=== PATIENT | female | born 1985 | race Two or more races ===

== ENCOUNTER → 2016-09-10 | Emergency (ER) | payer OTHER ==
[2016-09-10 14:13] VITALS: TEMP 98.4; BMI 26.6
--- NOTE | 2016-09-10 15:35 | PDOC ---
History of Present Illness - General History Source: Patient - History of Present Illness Presenting Symptoms: Chest Pain, Short of Breath, Other Timing/Duration: reports: intermittent <More Lawrence - Last Filed: 09/10/16 17:59> <Chano Kaur - Last Filed: 09/10/16 21:53> - General Chief Complaint: Chest Pain Stated Complaint: SENT BY PCP,CHEST PAIN Time Seen by Provider: 09/10/16 15:02 Past History - Past Medical History Anemia: Yes HTN: Yes Hypercholesterolemia: Yes Thyroid Disease: Yes - Immunization History Immunization Up to Date: Yes - Psycho/Social/Smoking Cessation Hx Suicidal Ideation: No Smoking History: Never smoked Hx Alcohol Use: No Drug/Substance Use Hx: No Substance Use Type: None <More Lawrence - Last Filed: 09/10/16 17:59> <Chano Kaur - Last Filed: 09/10/16 21:53> - Past Medical History Allergies/Adverse Reactions: Allergies Allergy/AdvReac Type Severity Reaction Status Date / Time No Known Allergies Allergy Verified 09/10/16 14:13 Home Medications: Ambulatory Orders Ibuprofen [Motrin -] 400 mg PO QID 09/10/16 Levothyroxine [Synthroid -] 125 mcg PO DAILY 09/10/16 Lisinopril/Hydrochlorothiazide [Lisinopril-Hctz 20-12.5 mg Tab] 1 each PO DAILY 09/10/16 Methocarbamol [Robaxin -] 500 mg PO TID PRN #21 tablet 09/10/16 Oxycodone HCl/Acetaminophen [Oxycodone-Acetaminophen 5-325] 1 - 2 tab PO Q4H PRN 09/10/16 Pantoprazole Sodium [Protonix] 40 mg PO DAILY #21 tablet. 09/10/16 Review of Systems - Review of Systems Constitutional: No: Chills, Fever Respiratory: Yes: Shortness of Breath. No: Cough Cardiac (ROS): Yes: Chest Pain, Palpitations. No: Lightheadedness <More Lawrence Last Filed: 09/10/16 17:59> *Physical Exam - Physical Exam General Appearance: Yes: Appropriately Dressed. No: Apparent Distress HEENT: positive: Normal Voice Neck: positive: Supple Respiratory/Chest: positive: Lungs Clear, Normal Breath Sounds. negative: Respiratory Distress Cardiovascular: positive: Regular Rate, S1, S2 Gastrointestinal/Abdominal: positive: Soft. negative: Tender Extremity: positive: Normal Inspection. negative: Pedal Edema Integumentary: positive: Dry, Warm Neurologic: positive: Fully Oriented, Alert, Normal Mood/Affect <Brittney LawrenceValentina - Last Filed: 09/10/16 17:59> - Vital Signs Last Vital Signs Temp Pulse Resp BP Pulse Ox 98.4 F 86 22 142/102 99 09/10/16 19:39 09/10/16 19:39 09/10/16 19:39 09/10/16 19:39 09/10/16 19:39 Heart Score/ECG Review <HowardMore - Last Filed: 09/10/16 17:59> <Chano Kaur - Last Filed: 09/10/16 21:53> - ECG Intrepretation Comment:: 09/10/16 15:42 Twelve-lead EKG was performed and reviewed by me. There is normal sinus rhythm with a normal rate. The axis is normal. The intervals are normal. There are no ST or T wave abnormalities. Impression: Normal twelve-lead EKG (HowardMore) ED Treatment Course - LABORATORY CBC & Chemistry Diagram: 09/10/16 15:00 <HowardBrittneyNaldo - Last Filed: 09/10/16 17:59> - LABORATORY CBC & Chemistry Diagram: 09/10/16 15:00 09/10/16 18:50 <Chano Kaur - Last Filed: 09/10/16 21:53> - ADDITIONAL ORDERS Additional order review: Laboratory Results 09/10/16 09/10/16 09/10/16 18:50 18:27 15:07 D-Dimer Sodium 141 Cancelled Potassium 4.0 Cancelled Chloride 102 Cancelled Carbon Dioxide 28 Cancelled Anion Gap 11 Cancelled BUN 9 D Cancelled Creatinine 0.5 L Cancelled Creat Clearance w eGFR > 60 Cancelled Random Glucose 84 Cancelled Calcium 9.5 Cancelled Total Bilirubin 0.3 D Cancelled AST 26 D Cancelled ALT 49 Cancelled Alkaline Phosphatase 69 D Cancelled Creatine Kinase Troponin I Total Protein 7.9 Cancelled Albumin 4.0 D Cancelled Urine Color Straw Urine Appearance Clear Urine pH 6.0 Ur Specific [place] 1.009 Urine Protein Negative Urine Glucose (UA) Negative Urine Ketones Negative Urine Blood 1+ H Urine Nitrite Negative Urine Bilirubin Negative Urine Urobilinogen Negative Ur Leukocyte Esterase 1+ H Urine RBC 1 Urine WBC 4 Ur Epithelial Cells Rare Urine Mucus Rare 09/10/16 09/10/16 15:00 15:00 D-Dimer 874 H Sodium Potassium Chloride Carbon Dioxide Anion Gap BUN Creatinine Creat Clearance w eGFR Random Glucose Calcium Total Bilirubin AST ALT Alkaline Phosphatase Creatine Kinase 62 Troponin I < 0.02 Total Protein Albumin Urine Color Urine Appearance Urine pH Ur Specific [place] Urine Protein Urine Glucose (UA) Urine Ketones Urine Blood Urine Nitrite Urine Bilirubin Urine Urobilinogen Ur Leukocyte Esterase Urine RBC Urine WBC Ur Epithelial Cells Urine Mucus 09/10/16 15:00 RBC 5.18 MCV 74.5 L MCHC 31.7 L RDW 18.3 H D MPV 8.2 Neutrophils % 63.3 Lymphocytes % 24.6 Monocytes % 5.4 Eosinophils % 5.9 H D Basophils % 0.8 Medical Decision Making <More Lawrence - Last Filed: 09/10/16 17:59> <Chano Kaur - Last Filed: 09/10/16 21:53> - Medical Decision Making 09/10/16 15:34 31 yo F, s/p hysterctomy 2 weeks ago for fibroids/menorrhagia, HTN, p/w CP. Pt reports sharp, non-radiating L sided CP that started last night, comes and goes and 7/10. ?sob and palpitations this am. No leg pain/swelling, cough, f/c. Had similar sxs in the past per pt that self resolved. pt states she saw her PMD today who referred pt to ED See exam CP w/ ?sob and palpitations S/p hysterectomy 2 weeks ago at [facility] in ED (carries dx of HTN and compliant w/ meds per pt), stable otherwise w/ rest of exam unremarkable R/o PE given recent surgery, less likely ACS, r/o other source, i.e anemia (no vag bleed currently) -ekg -cxr -labs including ddimer -anticipate discharge if w/u neg 09/10/16 16:02 09/10/16 16:32 09/10/16 16:33 09/10/16 17:59 Dimer >800. CTA pending. Pt remains stable in ED (Brittney LawrenceValentina) 09/10/16 21:[address] CLIFFORD REGARDING PATIENT CTA-NEG, TROP- 0.02. SHE REQUEST THAT PATIENT BE GIVEN PROTONIX AND D/C'D TO HOME. (Chano Kaur) *DC/Admit/Observation/Transfer <Brittney LawrenceValentina - Last Filed: 09/10/16 17:59> - Discharge Dispostion Admit: No <Chano Kaur - Last Filed: 09/10/16 21:53> Diagnosis at time of Disposition: Chest pain Qualifiers: Chest pain type: unspecified Qualified Code(s): R07.9 - Chest pain, unspecified GERD (gastroesophageal reflux disease) Qualifiers: Esophagitis presence: without esophagitis Qualified Code(s): K21.9 - Gastro- esophageal reflux disease without esophagitis - Discharge Dispostion Disposition: HOME Condition at time of disposition: Good - Prescriptions Prescriptions: Pantoprazole Sodium [Protonix] 40 mg PO DAILY #21 tablet. Methocarbamol [Robaxin -] 500 mg PO TID PRN #21 tablet PRN Reason: MUSCULOSKELETAL PAIN - Referrals Referrals: Mariia Clifford MD [Primary Care Provider] - - Patient Instructions Printed Discharge Instructions: DI for Atypical Chest Pain Additional Instructions: Continue to follow up with your PMD Print Language: DJIBOUTIAN
[2016-09-10 15:38] LABS: BASOPHIL 0.8 % (0-2.0); EOSINOPHIL 5.9 % (0-4.5); MCH 23.6 pg (25.7-33.7); MCHC 31.7 g/dl (32.0-36.0); MEAN CELL VOLUME 74.5 fl (80-96); MEAN PLT VOLUME 8.2 fl (7.5-11.1); NEUTROPHILS 63.3 % (42.8-82.8); PLATELET COUNT 411 K/MM3 (134-434); RDW 18.3 % (11.6-15.6); WHITE BLOOD COUNT 9.7 K/mm3 (4.0-10.0)
[2016-09-10 15:44] LABS: URINE APPEARANCE CLEAR; URINE BILIRUBIN NEGATIVE (NEGATIVE); URINE COLOR STRAW; URINE GLUCOSE (UA) NEGATIVE (NEGATIVE); URINE KETONE NEGATIVE (NEGATIVE); URINE NITRITE NEGATIVE (NEGATIVE); URINE PROTEIN NEGATIVE (NEGATIVE); URINE UROBILINOGEN NEGATIVE E.U./dl (0.2-1.0)
[2016-09-10 15:45] LABS: URINE BLOOD 1+ (NEGATIVE); URINE LEUK ESTERASE 1+ (NEGATIVE)
[2016-09-10 16:07] LABS: TROPONIN I < 0.02 ng/ml (0.00-0.05)
[2016-09-10 16:09] LABS: URINE MUCUS RARE; URINE RBC 1 /hpf (0-3); URINE WBC 4 /hpf (3-5)
--- NOTE | 2016-09-10 17:06 | PDOC ---
*Physical Exam - Vital Signs Last Vital Signs Temp Pulse Resp BP Pulse Ox 98.4 F 80 18 150/104 98 09/10/16 14:11 09/10/16 14:11 09/10/16 14:11 09/10/16 14:11 09/10/16 14:48 ED Treatment Course - LABORATORY CBC & Chemistry Diagram: 09/10/16 15:00 - ADDITIONAL ORDERS Additional order review: Laboratory Results 09/10/16 09/10/16 15:07 15:00 Creatine Kinase 62 Troponin I < 0.02 Urine Color Straw Urine Appearance Clear Urine pH 6.0 Ur Specific [place] 1.009 Urine Protein Negative Urine Glucose (UA) Negative Urine Ketones Negative Urine Blood 1+ H Urine Nitrite Negative Urine Bilirubin Negative Urine Urobilinogen Negative Ur Leukocyte Esterase 1+ H Urine RBC 1 Urine WBC 4 Ur Epithelial Cells Rare Urine Mucus Rare 09/10/16 15:00 RBC 5.18 MCV 74.5 L MCHC 31.7 L RDW 18.3 H D MPV 8.2 Neutrophils % 63.3 Lymphocytes % 24.6 Monocytes % 5.4 Eosinophils % 5.9 H D Basophils % 0.8 Medical Decision Making - Medical Decision Making 09/10/16 17:04 Patient seen and evaluated with the nurse practitioner. I agree with the overall evaluation, assessment, and management with the following summary of visit: 31-year-old female with recent hysterectomy presents with atypical chest pain and difficulty breathing. No risk factors for ACS. Agree with management as outlined, including d-dimer for low risk PE, EKG without acute abnormality. Chest x-ray. *DC/Admit/Observation/Transfer Diagnosis at time of Disposition: Chest pain Qualifiers: Chest pain type: unspecified Qualified Code(s): R07.9 - Chest pain, unspecified - Discharge Dispostion Condition at time of disposition: Good - Referrals Referrals: Mariia Clifford MD [Primary Care Provider] - - Patient Instructions Printed Discharge Instructions: DI for Atypical Chest Pain Additional Instructions: Continue to follow up with your PMD - Post Discharge Activity
[2016-09-10 19:30] LABS: ALK PHOS 69 U/L (45-117); ANION GAP 11 (8-16); BILIRUBIN,TOTAL 0.3 mg/dL (0.2-1.0); CALCIUM 9.5 mg/dL (8.5-10.1); CO2 28 mmol/L (21-32); CREATININE 0.5 mg/dL (0.55-1.02); GLUCOSE,RANDOM 84 mg/dL (74-106); SGOT/AST 26 U/L (15-37); SGPT/ALT 49 U/L (12-78); TOT PROT 7.9 g/dl (6.4-8.2)
[2016-09-10 19:41] VITALS: BP 142/102; PULSE 86
--- NOTE | 2016-09-11 13:33 | EKG ---
Test Reason : Blood Pressure : / mmHG Vent. Rate : 084 BPM Atrial Rate : 084 BPM P-R Int : 144 ms QRS Dur : 082 ms QT Int : 376 ms P-R-T Axes : 037 039 049 degrees QTc Int : 444 ms NORMAL SINUS RHYTHM NORMAL ECG WHEN COMPARED WITH ECG OF 12-AUG-2016 13:27, NO SIGNIFICANT CHANGE WAS FOUND Confirmed by MEY WOODWARD MD ([id number]) on 09/11/2016 1:33:12 PM Referred By: Confirmed By:MEY WOODWARD MD
== END | disposition home or self-care (01) ==
LOC: JER 13:57
DX: R07.9 Chest pain, unspecified (principal); Z98.890 Other specified postprocedural states; I10 Essential (primary) hypertension; E78.00 Pure hypercholesterolemia, unspecified; E03.9 Hypothyroidism, unspecified; D64.9 Anemia, unspecified
CPT/HCPCS: 36415; 71020-TC; 71275-TC; 80053; 81003; 81015; 82550; 84484; 85025; 85379; 93005; 93010; 99284-25

== ENCOUNTER 2018-06-08 11:26 | Day surgery (SDC) | payer OTHER ==
[2018-06-07 08:57] VITALS: BMI 26.2
[2018-06-08] MEDS ORDERED: ONDANSETRON 4 MG/2 ML VIAL IVPUSH PRN (12:29)
[2018-06-08] MEDS ORDERED: PROMETHAZINE HCL 25 MG/1 ML VIAL IVPB PRN (12:29)
[2018-06-08] MEDS ORDERED: oxyCODONE HCL 5 MG TABLET PO PRN (12:29)
[2018-06-08] MEDS ORDERED: LACTATED RINGERS SOLUTION 1,000 ML IV SCH (12:30)
[2018-06-08] MEDS ORDERED: LIDOCAINE HCL 1%, 10 MG/ML (20ML VIAL) ONE (12:34)
[2018-06-08] MEDS ORDERED: HEPARIN NA (PORCINE) 5,000 UNITS/ML 1ML VIAL ONE (12:34)
[2018-06-08] MEDS ORDERED: LIDOCAINE HCL 2% JELLY 10 ML CARTRIDGE ONE ×3 (12:34→12:56)
[2018-06-08] MEDS ORDERED: SODIUM BICARBONATE 8.4% - 50 ML ONE (12:36)
--- NOTE | 2018-06-08 12:47 | HP ---
History & Physical Update - History History: No Change - Physical Physical: No Change - Assessment Assessment: No Change - Plan Plan: No Change
[2018-06-08] MEDS ORDERED: MIDAZOLAM HCL 2 MG/2 ML SINGLE DOSE VIAL ONE ×2 (12:48)
[2018-06-08] MEDS ORDERED: ACETAMINOPHEN 1000 MG/100 ML VIAL (NON FORMULARY) IVPB ONE (12:50)
[2018-06-08] MEDS ORDERED: SUCCINYLCHOLINE CHLORIDE 200 MG/10 ML VIAL ONE (12:57)
[2018-06-08] MEDS ORDERED: PROPOFOL 20 ML ONE ×2 (12:57)
[2018-06-08] MEDS ORDERED: ceFAZolin SODIUM 1 GM VIAL IVPB ONE (12:59)
[2018-06-08] MEDS ORDERED: LIDOCAINE HCL 2% JELLY 10 ML CARTRIDGE TP ONE (13:10)
[2018-06-08] MEDS ORDERED: IBUPROFEN 800 MG/8 ML IJ IVPB ONE (13:40)
[2018-06-08] MEDS ORDERED: ACETAMINOPHEN INJECTION 100 ML IVPB ONE (13:40)
--- NOTE | 2018-06-08 13:47 | OP ---
DATE OF OPERATION: 06/08/2018 SURGEON: Marck Carlos M.D. PREOPERATIVE DIAGNOSIS: Interstitial cystitis. POSTOPERATIVE DIAGNOSIS: Interstitial cystitis. PROCEDURE PERFORMED: Cystoscopy, hydrodistention and bladder instillation. ESTIMATED BLOOD LOSS: Minimal. FINDINGS: Bladder inflammation consistent with interstitial cystitis. INDICATIONS: The patient is a 33-year-old female with signs and symptoms of interstitial cystitis. She comes to the OR for cystoscopy, hydrodistention and bladder instillation. DESCRIPTION OF PROCEDURE: The patient was brought to the OR and placed on the table in the supine position. She was given general anesthesia and IV antibiotics, and placed in the modified lithotomy position. The groin was prepped and draped sterilely. A time-out was performed. Cystoscopy was performed. The urethra appeared to be normal. The bladder, however, had hyperemia throughout, consistent with her diagnosis of interstitial cystitis. No stones or tumors were seen. Clear efflux was seen bilaterally. An A-line transducer was the scope to monitor the pressures in the bladder during the instillation. The bladder was filled and the pressure was kept at approximately 50 mmHg. This was held for 10 minutes. It was then drained, and in the mucosa was seen, consistent with interstitial cystitis. The bladder was then filled again, held, and then released again. A solution of 50 mL of bicarbonate, lidocaine, heparin and saline was infused into the bladder, leaving it in the bladder postoperatively. Lidocaine jelly was also infused per urethra after the scope was removed. The patient was woken up. MARCK CARLOS M.D. [id number]
[2018-06-08 16:02] VITALS: TEMP 98.5
[2018-06-08] MEDS ORDERED: oxyCODONE HCL 5 MG TABLET ONE (17:11)
[2018-06-08] MEDS ORDERED: IBUPROFEN 800 MG/8 ML IJ IVPB SCH (18:00)
[2018-06-08 18:02] VITALS: BP 121/74; PULSE 74
== END 2018-06-08 18:03 | disposition home or self-care (01) ==
LOC: JASU-SURG 11:26
PROVIDERS: ATTEND Urology
PROC: 0T7B8ZZ Dilation of Bladder, Via Natural or Artificial Opening Endoscopic (ICD-10-PCS; principal; 2018-06-08 12:30)
DX: N30.10 Interstitial cystitis (chronic) without hematuria (principal)
CPT/HCPCS: 94760; J0131; J1644

== ENCOUNTER 2019-04-06 09:39 | Day surgery (SDC) | payer OTHER ==
[2019-04-05 15:15] VITALS: BMI 25.0
[2019-04-06] MEDS ORDERED: LIDOCAINE HCL 1%, 10 MG/ML (20ML VIAL) ONE (10:46)
[2019-04-06] MEDS ORDERED: HEPARIN NA (PORCINE) 5,000 UNITS/ML 1ML VIAL ONE (10:46)
[2019-04-06] MEDS ORDERED: LIDOCAINE HCL 2% (20ML MULTI-DOSE VIAL) NR ONE (10:49)
[2019-04-06] MEDS ORDERED: SODIUM BICARBONATE 8.4% - 50 ML ONE (10:50)
[2019-04-06] MEDS ORDERED: LIDOCAINE HCL 2% JELLY 10 ML CARTRIDGE ONE (10:56)
[2019-04-06] MEDS ORDERED: LIDOCAINE HCL 2% JELLY (5 ML/TUBE) ONE (10:56)
--- NOTE | 2019-04-06 12:21 | HP ---
[facility] - Chief Complaint Chief Complaint: interstitial cystitis History of Present Illness: IC. here for hydrodistension History Source: Patient Limitations to Obtaining History: No Limitations - Past Medical History Allergies/Adverse Reactions: Allergies Allergy/AdvReac Type Severity Reaction Status Date / Time No Known Allergies Allergy Verified 04/05/19 15:19 Renal/: Yes: Other ...LMP Comment: YORDY 2016 - Current Medications Current Medications: Home Medications Medication Instructions Recorded Amlodipine Besylate [Norvasc -] 10 mg PO DAILY 04/05/19 Atorvastatin Calcium [Lipitor] 10 mg PO DAILY 04/05/19 Cholecalciferol (Vitamin D3) 2,000 unit PO DAILY 04/05/19 [Vitamin D3 -] Levothyroxine Sodium [Synthroid] 137 mcg PO DAILY 04/05/19 Amitriptyline HCl 25 mg PO HS 04/06/19 Norethindrone 5 mg PO DAILY 04/06/19 Pentosan Polysulfate Sodium 100 mg PO TID 04/06/19 [[place]miron] Satellite Physical Exam - Physical Examination Vital Signs: Vital Signs Period Temp Pulse Resp BP Sys/Yan Pulse Ox Last 24 Hr 97.7 F-97.7 F 70-70 20-20 122-122/87-87 100 General Appearance: Well Nourished, Well Developed, Alert & Oriented x3 ENT: Clear, No Discharge, No masses Lung: Clear to auscultation Heart: Regular rate & rhythm, Normal S1, Normal S2 Abdomen: Soft, No tenderness Neurological: Intact, Alert, Oriented Satellite Impression/Plan - Impression/Plan Impression: Interstitial cysitits. for cysto Operative Procedure: cysto hydrodistension Date to be Performed: 04/06/19
[2019-04-06] MEDS ORDERED: ACETAMINOPHEN 1000 MG/100 ML VIAL (NON FORMULARY) IVPB ONE (12:22)
[2019-04-06] MEDS ORDERED: MIDAZOLAM HCL 2 MG/2 ML SINGLE DOSE VIAL ONE ×2 (12:23)
[2019-04-06] MEDS ORDERED: ceFAZolin SODIUM 1 GM VIAL IVPB ONE (12:25)
[2019-04-06] MEDS ORDERED: SUCCINYLCHOLINE CHLORIDE 200 MG/10 ML SYRINGE ONE (12:29)
[2019-04-06] MEDS ORDERED: PROPOFOL 20 ML ONE (12:29)
[2019-04-06] MEDS ORDERED: LIDOCAINE HCL 2% JELLY 10 ML CARTRIDGE TP ONE (12:53)
[2019-04-06] MEDS ORDERED: oxyCODONE HCL 5 MG TABLET PO PRN (13:04)
[2019-04-06] MEDS ORDERED: PROMETHAZINE HCL 25 MG/1 ML VIAL IVPB PRN (13:04)
[2019-04-06] MEDS ORDERED: ONDANSETRON 4 MG/2 ML VIAL IVPUSH PRN (13:04)
[2019-04-06] MEDS ORDERED: LACTATED RINGERS SOLUTION 1,000 ML IV SCH (13:15)
[2019-04-06] MEDS ORDERED: ACETAMINOPHEN INJECTION 100 ML IVPB ONE (13:23)
[2019-04-06] MEDS ORDERED: IBUPROFEN 800 MG/8 ML IJ IVPB SCH (14:00)
[2019-04-06] MEDS ORDERED: ONDANSETRON 4 MG/2 ML VIAL ONE (15:07)
[2019-04-06 18:44] VITALS: BP 125/81; PULSE 60; TEMP 97.8
--- NOTE | 2019-04-25 15:33 | OP ---
DATE OF OPERATION: 04/06/2019 PREOPERATIVE DIAGNOSIS: Interstitial cystitis. POSTOPERATIVE DIAGNOSIS: Interstitial cystitis. PROCEDURE: Cystoscopy, hydrodistention, instillation of medication. ANESTHESIA: General. FINDINGS: IC. PREOPERATIVE INDICATIONS: Patient interstitial cystitis. She comes to the office with hydrodistention and bladder instillation. DESCRIPTION OF PROCEDURE: The patient was brought to the OR. Placed on the table in a supine position. Given general anesthesia and IV antibiotics and placed in the modified lithotomy position. The groin was prepped and draped sterilely. Cystoscopy was performed. The urethra appeared to be normal. The bladder itself was small in volume with hyperemia throughout consistent with IC. No tumors or stones were seen. The bladder was filled up and held for 10 minutes under a pressure of 60 mmHg then emptied. Bladder had glomerulations throughout consistent with IC. Instillation of lidocaine, heparin, bicarbonate, and saline were infused and left in the bladder. The patient was awoken up. Steve [id number]
== END 2019-04-06 16:15 | disposition home or self-care (01) ==
LOC: JASU-SURG 09:39
PROVIDERS: ATTEND Urology
PROC: 0T7B8ZZ Dilation of Bladder, Via Natural or Artificial Opening Endoscopic (ICD-10-PCS; principal; 2019-04-06 11:00)
DX: N30.10 Interstitial cystitis (chronic) without hematuria (principal)
CPT/HCPCS: 94760; J0131; J1644